=== PATIENT | female | born 1980 | race Caucasian/White ===

== ENCOUNTER 2022-01-07 10:48 | Emergency (ER) | payer MEDICAID, SELFPAY ==
--- NOTE | ~2022-01-07 | XR_ITS ---
EXAMINATION: XR FOOT, LEFT CLINICAL INFORMATION: First MTP joint pain COMPARISON: None TECHNIQUE: AP, lateral, and oblique views of the left foot. FINDINGS: No visible acute fracture or dislocation. Alignment is anatomic. Joint spaces are maintained. No abnormal soft tissue calcification. XR/XR foot LT min 3V IMPRESSION: No radiographically evident acute osseous abnormality.
[2022-01-07 10:55] VITALS: BP 137/74; PULSE 85; RESP 18; TEMP 36.9; O2SAT 98; BMI 19.3
--- NOTE | 2022-01-07 12:13 | ED_ITS ---
HPI - Extremity Problem General Chief complaint: Extremity Problem Stated complaint: Broken Big toe on L foot Time Seen by Provider: 01/07/22 11:28 Source: patient Mode of arrival: ambulatory History of Present Illness HPI Narrative: 41-year-old female with no significant past medical history presenting to the ED complaining left great toe pain S/P slipping on rocks while tubing 1 week ago. Admits hit toe again today which cause worsening pain. Denies injury to other area, numbness, tingling, weakness. MD Complaint: extremity pain, joint swelling and joint pain Related Data Allergies Allergy/AdvReac Type Severity Reaction Status Date / Time Unable to Assess Allergy Verified 01/07/22 11:28 Review of Systems Review of Systems: Constitutional: No Fever, No Chills ENT/Mouth: No Ear Pain, No Nasal Congestion, No sore throat, No Rhinorrhea, No Swallowing Difficulty Cardiovascular: No Chest Pain, No SOB Respiratory: No Cough, No Sputum, No Wheezing Gastrointestinal: No Nausea, No Vomiting, No Diarrhea, No Constipation, No Abdominal pain Genitourinary: No Dysuria, No Urinary Frequency, No Hematuria Musculoskeletal: + joint pain, No Myalgias, + Joint Swelling Skin: No Skin Lesions, No rash Neuro: No Weakness, No Numbness, No Paresthesias Yes all other systems are reviewed and are negative Constitutional: Constitutional: Reports as per [facility] Past Medical History Attestation statement: The following information was validated with the patient. Social History Social History Advance Directives: No Advance Directives Information Provided: No Physical Exam Vital Signs: Vital Signs: Last Vital Signs Temp 98.5 F 01/07/22 10:55 Pulse 85 01/07/22 10:55 Resp 18 01/07/22 10:55 BP 137/74 01/07/22 10:55 Pulse Ox 98 01/07/22 10:55 O2 Del Method 01/07/22 10:55 BMI result Body Mass Index 19.3 Const: General: cooperative, healthy appearing and no acute distress Orientation/consciousness: patient oriented x3 Limitations: no limitations HEENT: Head: Yes normal to inspection and Yes atraumatic Ears: hearing grossly normal bilaterally General nose exam: Normal external nose present Face and sinus: Yes normal facial exam Eyes: General: appearance normal, both eyes and all related structures EOM: EOMs intact bilaterally Neck: Neck: Yes normal visual inspection and Yes no meningeal signs Resp: Effort & Inspection: normal respiratory effort and no respiratory distress Cardio: Rate: regular rate Heart sounds: S1 normal heart sound present and S2 normal heart sound present Peripheral pulses: dorsalis pedis present Skin: Rashes: no rashes Wounds: no wounds Neuro: General: patient oriented x3, tone normal and no meningeal signs Gait exam (Neuro): Normal gait present Extrem: Other: Left great toe with mild swelling to medial aspect healing abrasion. ROM intact but limited secondary to pain. Tender to palpation. Sensation intact to light touch. Neurovascularly intact Left foot/ankle/knee nontender Course Course Course Narrative: XR foot LT min 3V IMPRESSION: No radiographically evident acute osseous abnormality. >Results discussed with patient including worrisome signs and symptoms and strict return precautions, and when to return to the emergency department. They verbalized understanding and feel safe for discharge at this time. MDM - Extremity (Nontraumatic) MDM Narrative Medical decision making narrative: 41-year-old female with no significant past medical history presenting to the ED complaining left great toe pain S/P slipping on rocks while tubing 1 week ago. On exam vital signs stable, NAD, nontoxic appearing, pee above. Concern for toe fracture versus sprain. No evidence of infection/cellulitis Plan: X-rays Medical Records Attestation: I reviewed the patient's medical records. Lab Data Attestation: I reviewed the patient's lab results. Discharge Plan Discharge Clinical Impression: Sprain of toe Patient Disposition: Home, Self-Care Instructions: Foot Sprain (ED) Additional Instructions: Your x-ray does not show any fractures. Ice and elevate her foot. Take Tylenol and Motrin for pain. Rest. Follow up with her doctor Referrals: Riri nAgel DO [Primary Care Provider] - 1 week (as needed)
== END 2022-01-07 14:06 | disposition home or self-care (01) ==
PROVIDERS: Emergency Provider Emergency Medicine; PCP Internal Medicine
DX: S93.502A Unspecified sprain of left great toe, initial encounter (principal); M79.672 Pain in left foot; W01.0XXA Fall on same level from slipping, tripping and stumbling without subsequent striking against object, initial encounter; Y93.16 Activity, rowing, canoeing, kayaking, rafting and tubing; Y92.9 Unspecified place or not applicable; Y99.9 Unspecified external cause status
CPT/HCPCS: 73630; 99283